=== PATIENT | female | born 1950 | race Caucasian/White ===

== ENCOUNTER → 2020-07-05 09:32 | Outpatient (CLI) | payer MEDICARE, OTHER, SELFPAY ==
--- NOTE | ~2020-07-05 | MM_ITS ---
EXAMINATION: MM diagnostic celina BI w quoc HISTORY: Right breast calcifications. Left breast burning sensation. TECHNIQUE: Additional 3-D tomosynthesis images of the breasts were performed and synthetic 2-D images were generated. CAD analysis was submitted and interpreted. COMPARISON: Comparison to multiple prior studies sequentially, with oldest reviewed study dated 10/18. BREAST PARENCHYMAL COMPOSITION: The breasts are heterogenously dense, which may obscure small masses. FINDINGS: There are clustered calcifications in the upper outer quadrant of the right breast which ar e unchanged, likely benign. There are no new masses, calcifications or architectural distortion in th e left breast to suggest malignancy. IMPRESSION: 1. Probable benign right breast calcifications. 2. Recommend 6 month follow-up diagnostic right mammogram BI-RADS category 3, probably benign findings. Reviewed, dictated and finalized at location A.
== END ==
PROVIDERS: Visit Provider Nurse Practitioner Obstetrics & Gynecology
DX: R92.8 Other abnormal and inconclusive findings on diagnostic imaging of breast (principal)
CPT/HCPCS: 77062; 77066; G0279

== ENCOUNTER 2020-09-22 09:23 | Emergency (ER) | payer MEDICARE, OTHER, SELFPAY ==
--- NOTE | ~2020-09-22 | XR_ITS ---
EXAMINATION: XR tibia fibula RT 2V DATE: 09/22/2020 09:58 INDICATION: Pain at the anterior distal right tibia/fibula post trauma 2 days prior TECHNIQUE: Anteroposterior and lateral views of the right tibia and fibula were obtained. COMPARISON: None. FINDINGS: Bone alignment is normal. No fracture. Joint spaces are normal. Achilles and plantar calcaneal spurs. Soft tissues are unremarkable with no right knee or ankle joint effusion. IMPRESSION: 1. Negative right tibia/fibula radiographs. Reviewed, dictated and finalized at location A. ECTOR CRYSTAL
[2020-09-22 09:35] VITALS: BP 118/79; PULSE 78; RESP 12; TEMP 36.6; O2SAT 97
--- NOTE | 2020-09-22 09:45 | ED.GENADULT ---
HPI - General Adult General Chief complaint: Extremity Injury, Lower Stated complaint: leg inj Time Seen by Provider: 09/22/20 09:45 Source: patient Mode of arrival: ambulatory Limitations: no limitations History of Present Illness HPI narrative: 70-year-old female patient presents to the [facility] with complaints of right lower leg pain. Patient states about 2 days ago she slipped on her wooden stairs going up to her garage and hit her lower leg. Patient states she has been putting ice on it and taking ibuprofen. But states that has not gotten any better and is concerned that it might be broken. Patient states she is able to walk on her legs with a steady gait. Denies any numbness or tingling to the foot. Related Data Home Medications Medication Instructions Recorded Confirmed levothyroxine 100 mcg PO DAILY 09/22/20 09/22/20 omeprazole 20 mg PO DAILY 09/22/20 09/22/20 simvastatin 80 mg PO DAILY 09/22/20 09/22/20 Allergies Allergy/AdvReac Type Severity Reaction Status Date / Time No Known Allergies Allergy Verified 09/22/20 09:32 Review of Systems Review of Systems: Narrative: CONSTITUTIONAL: Denies fever, chills, or sweats. EYES: Denies visual changes, redness, or discharge. ENT: Denies rhinorrhea, congestion, sore throat, or otalgia. CARDIOVASCULAR: Denies chest pain, palpitations, or edema. RESPIRATORY: Denies cough or dyspnea. GASTROINTESTINAL: Denies abdominal pain, nausea, vomiting, or diarrhea. GENITOURINARY: Denies dysuria or hematuria. SKIN: Denies rash or itching. MUSCULOSKELETAL: Denies back pain, joint pain, or myalgia. Positive right lower leg pain NEUROLOGIC: Denies headache, numbness, or weakness. PSYCHIATRIC: Denies anxiety or depression. [facility] Past Medical History Medical History (Updated 09/22/20 @ 10:14 by YEIMY Pricthett) Dysphagia Esophageal stricture GERD (gastroesophageal reflux disease) Hiatal hernia Hypercholesteremia Hypothyroidism Rectal polyp Surgical History Surgical History (Updated 09/22/20 @ 09:46 by YEIMY Pritchett) H/O tubal ligation History of appendectomy Comments At the time of my signature I agree with nursing past medical history, surgical, social, and family history. There is no relevant family history pertinent to the presenting complaint. Exam Narrative: Exam Narrative: GENERAL: Well-appearing, well-nourished, and in no acute distress. HEAD: Normocephalic, atraumatic. EYES: PERRLA and EOMI. ENT: Nares clear, no rhinorrhea or epistaxis. Mucous membranes moist. NECK: Supple. No lymphadenopathy CHEST: Clear to auscultation. No respiratory distress. HEART: Regular rate and rhythm. No murmur heard. Normal peripheral pulses. ABDOMEN: Soft, nontender, nondistended, normal active bowel sounds. EXTREMITIES: Normal range of motion. No edema. Patient has some bruising with 2 very small abrasions noted to the right anterior tib-fib area. It is tender on palpation. Patient also has a little bit of 1+ pitting edema noted that goes up midway to the lower right leg. No swelling to the foot a little bit to the ankle. Patient does have good range of motion to the ankle and foot with no tenderness or pain. SKIN: Warm, dry, no rash. NEURO: No focal deficits. Alert and oriented x3. Course Reevaluation(s) Reevaluation #1: Reevaluated patient after her x-ray resulted. Notified patient that her x-ray is negative for any acute fractures. Discussed with her I think that this is most likely just a bad bruise to her lower leg which is causing the pain. Discussed with her I encouraged her to continue taking Tylenol ibuprofen for the pain, elevating it and icing as needed for the pain and swelling. Discussed with patient that if she continues to have worsening pain then I would encourage her to follow-up with her primary doctor otherwise I would give it a good 10 days to 2 weeks to see if this improves. Patient verbalized understanding denies any other questions or patience
== END 2020-09-22 10:16 | disposition home or self-care (01) ==
PROVIDERS: Emergency Provider Nurse Practitioner Family; PCP Internal Medicine
DX: S80.11XA Contusion of right lower leg, initial encounter (principal); W10.9XXA Fall (on) (from) unspecified stairs and steps, initial encounter; K21.9 Gastro-esophageal reflux disease without esophagitis; E78.00 Pure hypercholesterolemia, unspecified; E03.9 Hypothyroidism, unspecified
CPT/HCPCS: 73590; 99213; G0463

== ENCOUNTER 2022-01-13 09:29 | Outpatient (CLI) | payer MEDICARE, OTHER, SELFPAY ==
--- NOTE | 2022-01-13 11:00 | NEURO_ITS ---
Impression: # Complains of numbness of feet. # Normal nerve conduction study except amplitude drop of peroneal nerves. # Normal needle/EMG exam. # Clinical correlation recommended; Higher involvement cannot be ruled out. Nerve Conduction Studies Anti Sensory Summary Table Stim Site NR Peak (ms) P-T Amp (?V) Site1 Site2 Delta-P (ms) Dist (cm) Gregg (m/s) Left Sup Fibular Anti Sensory (Ant Lat Mall) 14 cm 3.6 9.9 14 cm Ant Lat Mall 3.6 16.0 44 Right Sup Fibular Anti Sensory (Ant Lat Mall) 14 cm 3.5 20.5 14 cm Ant Lat Mall 3.5 16.0 46 Left Sural Anti Sensory (Lat Mall) Calf 4.0 13.0 Calf Lat Mall 4.0 16.0 40 Right Sural Anti Sensory (Lat Mall) Calf 3.9 12.4 Calf Lat Mall 3.9 16.0 41 Motor Summary Table Stim Site NR Onset (ms) O-P Amp (mV) Site1 Site2 Delta-0 (ms) Dist (cm) Gregg (m/s) Left Peroneal Motor (Vastus Med) Ankle 4.0 1.4 Popit Ankle 8.6 38.0 44 Popit 12.6 1.1 Right Peroneal Motor (Vastus Med) Ankle 4.1 1.3 Popit Ankle 7.3 36.0 49 Popit 11.4 1.1 Left Tibial Motor (Abd Jackson Brev) Ankle 4.1 4.8 Knee Ankle 8.4 39.0 46 Knee 12.5 1.8 Right Tibial Motor (Abd Jackson Brev) Ankle 4.3 6.3 Knee Ankle 8.3 38.0 46 Knee 12.6 5.5 F Wave Studies NR F-Lat (ms) L-R F-Lat (ms) Left Peroneal (Mrkrs) (EDB) 51.10 1.86 Right Peroneal (Mrkrs) (EDB) 49.24 1.86 Left Tibial (Mrkrs) (Abd Hallucis) 50.13 0.74 Right Tibial (Mrkrs) (Abd Hallucis) 50.87 0.74 EMG Side Muscle Nerve Root Ins Act Fibs Amp Dur Recrt Comment Right AntTibialis Dp Br Fibular L4-5 Nml Nml Nml Nml Nml Right Gastroc Tibial S1-2 Nml Nml Nml Nml Nml Right Fibularis Long Sup Br Fibular L5-S1 Nml Nml Nml Nml Nml Right Flex Dig Long Tibial L5-S2 Nml Nml Nml Nml Nml Right Ext Dig Brev Dp Br Fibular L5, S1 Nml Nml Nml Nml Nml Left AntTibialis Dp Br Fibular L4-5 Nml Nml Nml Nml Nml Left Gastroc Tibial S1-2 Nml Nml Nml Nml Nml Left Fibularis Long Sup Br Fibular L5-S1 Nml Nml Nml Nml Nml Left Flex Dig Long Tibial L5-S2 Nml Nml Nml Nml Nml Left Ext Dig Brev Dp Br Fibular L5, S1 Nml Nml Nml Nml Nml MTDD
== END 2022-01-13 09:30 | disposition home or self-care (01) ==
LOC: ANHNEURO 09:32
PROVIDERS: PCP Internal Medicine; Visit Provider Internal Medicine
DX: G60.9 Hereditary and idiopathic neuropathy, unspecified (principal)
CPT/HCPCS: 95886; 95910

== ENCOUNTER 2024-02-10 06:12 | Day surgery (SDC) | payer MEDICARE, SELFPAY ==
[2023-12-28 10:44] VITALS: BMI 25.7
[2024-01-27 10:53] VITALS: BMI 25.8
--- NOTE | 2024-02-09 14:50 | WPDANESEPPF ---
Anes - Initial Pre Proc Eval Procedure: Operation Date: 02/10/24 08:00 Proposed Procedures p Esophagogastroduodenoscopy - Sebastián Durant MD s Diagnostic Colonoscopy - Sebastián Durant MD Date/Time: 02/09/24 14:50 Surgeon: Sebastián Durant MD Pre Op Diagnosis: Personal hx colon polyps,GERD w/o esophagitis Patient Data Age: 73 Gender: F Height: 1.63 m Weight: 68.3 kg Allergies Allergy/AdvReac Type Severity Reaction Status Date / Time No Known Allergies Allergy Verified 02/10/24 06:45 Home Medications Medication Instructions Recorded Confirmed Type levothyroxine 100 mcg tablet 100 mcg PO DAILY 09/22/20 02/10/24 History omeprazole 20 mg capsule,delayed 20 mg PO DAILY 09/22/20 02/10/24 History release simvastatin 80 mg tablet 80 mg PO DAILY 09/22/20 02/10/24 History acetaminophen 500 mg tablet 500 mg PO Q6H PRN Pain 01/27/24 02/10/24 History (Acetaminophen Extra Strength) calcium 500 mg tablet 500 mg PO DAILY 01/27/24 02/10/24 History cholecalciferol (vitamin D3) 25 25 mcg PO DAILY 01/27/24 02/10/24 History mcg (1,000 unit) tablet (Vitamin D3) letrozole 2.5 mg tablet 2.5 mg PO DAILY 01/27/24 02/10/24 History Patient hx anesthesia problems: none Family hx anesthesia problems: none Results Review: All pre-operative results and documents have been reviewed as part of the pre-operative evaluation. [facility] Past Medical History Medical History (Updated 02/10/24 @ 07:55 by Lobo Moody DO) Dysphagia Esophageal stricture GERD (gastroesophageal reflux disease) Hiatal hernia History of breast cancer last radiation 03/2023 Hypercholesteremia Hypothyroidism Neuropathy Rectal polyp Surgical History Surgical History (Updated 09/22/20 @ 09:46 by YEIMY Pritchett) H/O tubal ligation History of appendectomy Social History Social History Smoking status: Former smoker Tobacco type: cigarettes Alcohol intake: current Alcohol use details: 4 drinks monthly Substance use type: does not use Living arrangements: alone Spiritual care concerns: No Anes - Eval Final PreProcedure Day of Procedure 02/09/24 14:50 Patient weight: overweight Heart: regular rate and rhythm Lungs: clear to auscultation Airway: Mallampati scale class II Neurological: alert and oriented Last oral intake: >/= 8 hours ASA classification: III Emergent: no Anesthetic plan: proceed Anesthesia type and monitoring: general GIVS and standard monitoring Results Review: All pre-operative results and documents have been reviewed as part of the pre-operative evaluation. Informed Consent: The patient's anesthetic plan and its attendant risks and benefits were discussed with the patient/family/POA. Questions were solicited and answers provided to the satisfaction of the patient/family/POA.
[2024-02-10 06:47] VITALS: BP 132/85; PULSE 75; RESP 16; TEMP 36.8; O2SAT 95
[2024-02-10] MEDS: LACTATED RINGERS 1,000 ML 150 ML IV CONT (07:01)
--- NOTE | 2024-02-10 07:21 | PM.HPGS ---
History of Present Illness History of Present Illness Consent: Risks, benefits, and alternatives have been discussed and questions answered. Patient agrees to proceed with procedure. Chief complaint: Personal hx colon polyps,GERD w/o esophagitis Narrative: Tennille Willams is a 73 year old female presents for both colonoscopy and EGD. Patient gives a possible history of colon polyps in the past. She states that this is somewhat uncertain. Her family history is significant that her sister has had colon cancer. Patient presents for follow-up colonoscopy at this time. Her weight appetite and bowel movements are normal. Patient does give a history of acid reflux. She has a history of a Schatzki's ring and required esophageal dilatation in the past. Currently she takes omeprazole daily. She denies heartburn. Occasionally notices slow passage of food. She denies any weight loss or bleeding. Review of Systems Review of Systems: All systems reviewed & are unremarkable except as noted in HPI and below PMFSH Past Medical History Medical History (Updated 02/10/24 @ 07:23 by Sebastián Durant MD) Dysphagia Esophageal stricture GERD (gastroesophageal reflux disease) Hiatal hernia History of breast cancer Hypercholesteremia Hypothyroidism Rectal polyp Surgical History Surgical History (Updated 09/22/20 @ 09:46 by YEIMY Pritchett) H/O tubal ligation History of appendectomy Social History Social History Smoking status: Former smoker Tobacco type: cigarettes Alcohol intake: current Alcohol use details: 4 drinks monthly Substance use type: does not use Living arrangements: alone Spiritual care concerns: No Meds Home Medications and Allergies Home Medications Medication Instructions Recorded Confirmed Type levothyroxine 100 mcg tablet 100 mcg PO DAILY 09/22/20 02/10/24 History omeprazole 20 mg capsule,delayed 20 mg PO DAILY 09/22/20 02/10/24 History release simvastatin 80 mg tablet 80 mg PO DAILY 09/22/20 02/10/24 History acetaminophen 500 mg tablet 500 mg PO Q6H PRN Pain 01/27/24 02/10/24 History (Acetaminophen Extra Strength) calcium 500 mg tablet 500 mg PO DAILY 01/27/24 02/10/24 History cholecalciferol (vitamin D3) 25 25 mcg PO DAILY 01/27/24 02/10/24 History mcg (1,000 unit) tablet (Vitamin D3) letrozole 2.5 mg tablet 2.5 mg PO DAILY 01/27/24 02/10/24 History Allergies Allergy/AdvReac Type Severity Reaction Status Date / Time No Known Allergies Allergy Verified 02/10/24 06:45 Vital Signs Vital Signs - 24 hr 02/10/24 06:47 Temperature 98.3 F Pulse Rate 75 Respiratory Rate 16 Blood Pressure 132/85 Pulse Oximetry 95 Oxygen Delivery Room Air Exam Narrative: Physical exam reveals patient to be alert. Vital signs stable. HEENT exam is unremarkable. Patient is anicteric. Is are clear to auscultation and percussion. Heart is without murmur or extra sounds. Abdomen bowel sounds are present soft nontender with no organomegaly. Digital external rectal exam is normal. Assessment and Plan Assessment and plan (1) GERD (gastroesophageal reflux disease): Code(s): K21.9 - Gastro-esophageal reflux disease without esophagitis Status: Acute Assessment and Plan: Patient gives a longstanding history of GE reflux disease. Symptoms appear to be controlled with omeprazole 20mg p.o. daily. She does have occasional dysphagia for this reason EGD is requested. Continue anti-reflux measures are reviewed suggested. Follow-up EGD will be performed today. (2) Dysphagia: Code(s): R13.10 - Dysphagia, unspecified Status: Acute Assessment and Plan: Patient complains of slow passage of food. In the past has had a Schatzki's ring which was dilated. Plan for EGD to evaluate more thoroughly. (3) Family hx of colon cancer: Code(s): Z80.0 - Family history of malignant neoplasm
[2024-02-10 08:31] VITALS: BP 101/62; PULSE 78; RESP 14; O2SAT 97
[2024-02-10 08:41] VITALS: BP 107/74; PULSE 74; RESP 14; O2SAT 100
[2024-02-10 08:51] VITALS: BP 131/77; PULSE 69; RESP 16; O2SAT 98
--- NOTE | 2024-02-10 09:34 | SUR.PHASEII ---
0932 pt delayed d/c do to waiting for ride
--- NOTE | 2024-02-10 14:09 | WPDANESPN ---
Anes - Prog Note Post-Op Date/Time: 02/10/24 14:09 Cardiovascular status: normal Respiratory status: normal Airway patency: baseline Mental status: baseline Post-Op hydration status: normal Vital Signs: Last Vital Signs Temp 36.8 C 02/10/24 06:47 Pulse 69 02/10/24 08:51 Resp 16 02/10/24 08:51 BP 131/77 02/10/24 08:51 Pulse Ox 98 02/10/24 08:51 O2 Del Method Room Air 02/10/24 08:51 Pain Score (VAS): 0 I/O: Intake & Output 02/09/24 02/10/24 02/10/24 23:59 07:59 15:59 Intake Total 400 Balance 400 Post-procedural complaints: none Patient Feedback: Patient satisfied with anesthetic care. Other Findings: Patient vital signs back to baseline. Patient denies nausea and vomiting. Patient's pain under control. Patient OK for discharge.
== END 2024-02-10 09:32 | disposition home or self-care (01) ==
PROVIDERS: PCP Internal Medicine; Visit Provider Internal Medicine Gastroenterology
PROC: 0DJ08ZZ Inspection of Upper Intestinal Tract, Via Natural or Artificial Opening Endoscopic (ICD-10-PCS; CPT 43235; principal; 2024-02-10 08:00)
PROC: 0DJD8ZZ Inspection of Lower Intestinal Tract, Via Natural or Artificial Opening Endoscopic (ICD-10-PCS; CPT 45378; 2024-02-10 08:00)
DX: K21.9 Gastro-esophageal reflux disease without esophagitis (principal); R13.19 Other dysphagia; Z86.010 Personal history of colon polyps; K57.30 Diverticulosis of large intestine without perforation or abscess without bleeding; K64.8 Other hemorrhoids
CPT/HCPCS: G0105; 43450